=== PATIENT | female | born 1975 | race Caucasian/White ===

== ENCOUNTER 2017-01-20 02:27 | Emergency (ER) | payer OTHER ==
[~2017-01-20] VITALS: Ht 175.3 cm; Wt 93.0 kg
[~2017-01-20 02:27] MED LIST: CLINDAMYCIN HC300 MG PO; FLAGYL PO; FLEXERIL10 M1 PO; FLEXERIL10 MG PO; FLONASE16 GM; IBUPROFEN800 MG PO; KLONOPIN1 MG PO; LORTAB 7.5-5001 TAB PO; MOBIC PO; NO MEDICATIONS; PRENATAL1 TA1 PO; PRILOSEC20 MG PO; SOMA250 MG PO; VIBRAMYCIN100 M1 PO; VOLTAREN75 MG PO
== END 2017-01-20 03:05 | disposition home or self-care (01) ==
LOC: SED 02:27
DX: L03.116 Cellulitis of left lower limb (principal); Z88.5 Allergy status to narcotic agent; Z88.1 Allergy status to other antibiotic agents; Z79.899 Other long term (current) drug therapy
CPT/HCPCS: 99283